=== PATIENT | female | born 1945 | race Caucasian/White ===

== ENCOUNTER 2023-05-21 07:37 | Day surgery (SDC) | payer MEDICARE, OTHER ==
[~2023-05-21 07:37] MED LIST: Lactated Ringers 1,000 ML IV SCH; Sodium Chloride 0.9% 10 ML Syringe FLUSH PRN
[2023-05-21] MEDS ORDERED: Lactated Ringers 1,000 ML IV ONE (07:38)
[2023-05-21] MEDS ORDERED: HYDROmorphone 2 MG/ML SDV IV ONE (07:38)
[2023-05-21] MEDS ORDERED: Sugammadex Sodium 200 MG/2 ML VIAL IV ONE (07:38)
[2023-05-21] MEDS ORDERED: diphenhydrAMINE 50 MG/ML SDV IVPUSH ONE (07:38)
[2023-05-21] MEDS ORDERED: Propofol 200 MG/20 ML SDV IV ONE (07:38)
[2023-05-21] MEDS ORDERED: Ondansetron 4 MG/2 ML SDV IVPUSH ONE (07:38)
[2023-05-21] MEDS ORDERED: fentaNYL 100 MCG/2 ML SDV IV ONE (07:38)
[2023-05-21] MEDS ORDERED: Rocuronium 100 MG/10 ML MDV IV ONE (07:38)
[2023-05-21] MEDS ORDERED: Ketorolac 30 MG/ML SDV IVPUSH ONE (07:38)
[2023-05-21] MEDS ORDERED: Midazolam 1 MG/ML 2 ML SDV IV ONE (07:38)
[2023-05-21] MEDS ORDERED: Dexamethasone 4 MG/ML 5 ML MDV IVPUSH ONE (07:38)
== END 2023-05-21 14:09 | disposition home or self-care (01) ==
LOC: FB.SDS 07:37
PROVIDERS: ATTEND Surgery
DX: K80.80 Other cholelithiasis without obstruction (principal); I10 Essential (primary) hypertension; E66.9 Obesity, unspecified; Z68.29 Body mass index [BMI] 29.0-29.9, adult; Z79.899 Other long term (current) drug therapy
CPT/HCPCS: 00790; 88304; 99100; J1100; J1170; J1200; J1885; J2250; J2405; J2704; J3010; J3490; J7120

== ENCOUNTER 2024-04-09 13:00 | Emergency (ER) | payer MEDICARE, OTHER ==
[2024-04-09] MEDS ORDERED: Sodium Chloride 0.9% 10 ML Syringe FLUSH PRN (13:08)
[2024-04-09 13:47] LABS: BASOPHILS ABSOLUTE AUTO 0.1 x10-3/uL (0.0-0.1); BASOPHILS PERCENT AUTO 1.2 % (0.2-1.5); EOSINOPHILS ABSOLUTE AUTO 0.1 x10-3/uL (0.0-0.8); EOSINOPHILS PERCENT AUTO 1.2 % (0.6-8.1); HEMATOCRIT 47.2 % (34.2-48.2); HEMOGLOBIN 15.8 g/dL (11.4-15.5); LYMPHOCYTES PERCENT AUTO 10.3 % (18.4-52.1); MEAN CORPUSCULAR HEMOGLOBIN 28.6 pg (23.9-33.9); MEAN CORPUSCULAR HGB CONC 33.5 g/dL (31.9-34.8); MEAN CORPUSCULAR VOLUME 85.5 fL (76.7-100.5); MEAN PLATELET VOLUME 8.4 fL (7.1-12.4); MONOCYTES ABSOLUTE AUTO 0.5 x10-3/uL (0.3-1.0); MONOCYTES PERCENT AUTO 5.1 % (4.4-15.7); NEUTROPHILS ABSOLUTE AUTO 7.8 x10-3/uL (1.5-6.3); NEUTROPHILS PERCENT AUTO 82.2 % (30.8-76.2); PLATELET COUNT,PLT 216 x10(3)uL (151-488); RED BLOOD CELL COUNT 5.52 x10(6)uL (3.60-5.20); RED CELL DISTRIBUTION WIDTH 13.5 % (12.3-16.5); WHITE BLOOD CELL COUNT,WBC 9.4 x10-3/uL (3.0-10.3)
[2024-04-09 13:52] LABS: BLOOD UREA NITROGEN,BUN 12 mg/dL (7-18); CALCIUM 9.7 mg/dL (8.6-10.2); CARBON DIOXIDE,CO2 28 mmol/L (21-32); CHLORIDE,CL 103 mmol/L (100-110); CREATININE 0.6 mg/dL (0.55-1.02); ESTIMATED GFR 92 mL/min (>60); GLUCOSE RANDOM 136 mg/dL (80-116); POTASSIUM,K 4.4 mmol/L (3.5-5.3); SODIUM,NA 137 mmol/L (135-145)
[2024-04-09 13:58] LABS: ALANINE AMINOTRANSFERASE,ALT 26 U/L (12-36); ALBUMIN 3.2 g/dL (3.2-4.6); ALKALINE PHOSPHATASE 92 IU/L (56-112); ASPARTATE AMNIOTRANSFERASE,AST 18 IU/L (5-25); BILIRUBIN TOTAL 0.6 mg/dL (0.1-1.3); MAGNESIUM 1.9 mg/dL (1.8-2.5); PROTEIN TOTAL,TP 6.4 g/dL (6.0-8.0)
[2024-04-09 14:01] LABS: TROPONIN I 5.4 pg/mL (4.0-60.3)
[2024-04-09 14:02] LABS: C-REACTIVE PROTEIN < 0.50 mg/dL (<0.50)
[2024-04-09 14:07] LABS: INFLUENZA A NAA NEGATIVE (NEGATIVE); INFLUENZA B NAA NEGATIVE (NEGATIVE); RESPIRATORY SYNCYTIAL VIR NAA NEGATIVE (NEGATIVE)
[2024-04-09 14:08] LABS: CORONAVIRUS COVID-19 NAA NEGATIVE (NEGATIVE)
[2024-04-09 15:06] LABS: BILIRUBIN,URINE NEGATIVE (NEGATIVE); GLUCOSE,URINE NORMAL (NORMAL); KETONES,URINE 50 mg/dL (NEGATIVE); LEUKOCYTE ESTERASE,URINE NEGATIVE (NEGATIVE); NITRITE,URINE NEGATIVE (NEGATIVE); OCCULT BLOOD,URINE NEGATIVE (NEGATIVE); PROTEIN,URINE NEGATIVE (NEGATIVE); UROBILINOGEN,URINE NORMAL (NEGATIVE)
[2024-04-09 15:07] LABS: AMORPHOUS SEDIMENT,URINE MODERATE; APPEARANCE,URINE SLIGHTLY CLOUDY (CLEAR); BACTERIA,URINE RARE (NS); COLOR,URINE YELLOW (YELLOW); RBC,URINE 0-5 (0-5); SQUAMOUS EPITHELIAL CELLS,UR OCCASIONAL (NS,R,O); WBC,URINE 0-5 (0-5)
[2024-04-09] MEDS: Sodium Chloride 0.9% 1,000 ML IV ONE (15:38)
[2024-04-09] MEDS: Iopamidol 755 Mg/ML 100 ML Bottle IV SCH (15:42)
== END 2024-04-09 17:02 | disposition home or self-care (01) ==
LOC: FB.ED 13:00
DX: I65.23 Occlusion and stenosis of bilateral carotid arteries (principal); R55 Syncope and collapse; E86.0 Dehydration
CPT/HCPCS: 0241U; 36415; 70496; 70498; 80053; 81001; 83735; 84484; 85025; 86140; 93005; 96360; 99285; J7030; Q9967